=== PATIENT | male | born 1955 | race Caucasian/White ===

== ENCOUNTER 2018-05-26 10:45 | Day surgery (SDC) | payer OTHER ==
[2018-05-25 15:29] LABS: BASOPHILS 0.7 % (0-2); EOSINOPHILS 1.8 % (0-7); HEMATOCRIT 42.2 % (42.0-54.0); HEMOGLOBIN 14.6 g/dL (13.5-17.5); IMMATURE GRANULOCYTES 0.1 % (0-5); LYMPHOCYTES 26.3 % (15-50); MCH 31.5 pg (26.0-34.0); MCHC 34.6 g/dL (31.0-37.0); MCV 91.1 fL (80.0-100.0); MEAN PLATELET VOLUME 12.5 fL (7.4-10.4); MONOCYTES 7.2 % (2-11); NEUTROPHILS 63.9 % (40-80); PLATELET COUNT 161 10x3/uL (130-400); RBC 4.63 10x6/uL (4.20-6.10); RDW 12.3 % (11.5-14.5); WBC 8.3 10x3/uL (4.8-10.8)
[2018-05-25 15:43] LABS: ANION GAP 13.2 mmol/L (8-16); CALCIUM 9.2 mg/dL (8.5-10.1); CREATININE - SERUM 1.1 mg/dL (0.6-1.3); POTASSIUM - SERUM 4.2 mmol/L (3.5-5.1)
[~2018-05-26] VITALS: Ht 175.3 cm; Wt 73.0 kg
--- NOTE | ~2018-05-26 | OP ---
PATIENT NAME: IRMA TRAN MEDICAL RECORD: [id number] :53 LOCATION:D[facility] ADMISSION DATE: SURGEON: MARKO ALVARADO MD DATE OF OPERATION: 05/26/2018 PREOPERATIVE DIAGNOSES: 1. Right inguinal hernia. 2. Hypercholesterolemia. 3. Diabetes mellitus. POSTOPERATIVE DIAGNOSES: 1. Right inguinal hernia. 2. Hypercholesterolemia. 3. Diabetes mellitus. PROCEDURE: Right inguinal hernia repair with medium PHS mesh. SURGEON: Marko Alvarado MD REPORT OF PROCEDURE: The patient's right groin was prepped and draped in sterile fashion. An oblique incision was made above the inguinal ligament. Electrocautery was used to dissect through the subcutaneous tissues down to the external oblique fascia. This fascia was opened up to the external ring using electrocautery. The ilioinguinal nerve was found and high ligated. The patient had an indirect hernia defect. The hernia sac was dissected free and pushed back down into the abdominal cavity. An opening was made in the inguinal floor and the preperitoneal space of Retzius was opened up in all directions. A medium PHS mesh was inserted and sutured down on all 4 sides using multiple interrupted #0 Vicryls. The wound was irrigated out with normal saline and care was taken to assure there was no sign of any bleeding. At this point, the external oblique fascia was closed with running 2-0 Vicryl, Mook's was closed with interrupted 3-0 Vicryl, and skin was closed with running subcutaneous 5-0 Monocryl. A 10 mL of 0.25% Marcaine with epinephrine was infused into the surrounding tissues and the wound was dressed appropriately. COMPLICATIONS: None. CONDITION: Stable. ANESTHESIA: General endotracheal and local. BLOOD LOSS: Minimal. TRANSINT:[id number] Voice Confirmation ID: [id number] DOCUMENT ID: [id number] MARKO ALVARADO MD at 1714 CC: ANGELY BAE [id number] DICTATION DATE: 05/26/18 1452 [facility]: 05/26/[address] [facility] 05/26/18 [place] [address]
[~2018-05-26 10:45] MED LIST: FLOMAX0.4 MG PO; GLUCOPHAGE500 MG PO; PRAVACHOL20 MG PO
[2018-05-26 11:57] VITALS: BP 133/65; Ht 175.3 cm; Wt 73.0 kg
[2018-05-26] MEDS ORDERED: NORCO 10-325 TA1 TAB PO (14:48)
== END 2018-05-26 20:00 | disposition home or self-care (01) ==
LOC: D.OPS 10:45 → D.PAN 13:00 → D.OPS 13:00
PROVIDERS: Surgery
DX: K40.90 Unilateral inguinal hernia, without obstruction or gangrene, not specified as recurrent (principal); E78.00 Pure hypercholesterolemia, unspecified; E11.9 Type 2 diabetes mellitus without complications; Z01.812 Encounter for preprocedural laboratory examination